=== PATIENT | female | born 1980 | race African-American/Black ===

== ENCOUNTER 2016-08-17 13:52 | Emergency (ER) | payer BC ==
[~2016-08-17] VITALS: Ht 167.6 cm; Wt 71.7 kg
--- NOTE | 2016-08-17 14:08 | NUR ---
PT AMBULATORY TO ER BED 11 C/O EPIGASTRIC PAIN W/ N/V X 2 WEEKS. TODAY PT STARTED HAVING HEADACHE THIS MORNING. GOWNED AND PLACED ON MONITOR. VSS AWAITING MD BARTON.
--- NOTE | 2016-08-17 14:17 | NUR ---
DR WILSON AT BEDSIDE FOR EVAL.
[2016-08-17] MEDS ORDERED: IBUPROFEN 600 MG TABLET PO ONE ×2 (14:21→14:30)
[2016-08-17] MEDS ORDERED: ONDANSETRON 4 MG TAB.RAPDIS ONE (14:21)
--- NOTE | 2016-08-17 14:22 | NUR ---
CHEF DE PARTIE AT BEDSIDE FOR BLOO DRAW.
[2016-08-17 14:28] LABS: BASOPHILS # (AUTO) 0.1 /CMM (0.0-0.2); BASOPHILS % (AUTO) 0.9 % (0.0-2.0); EOSINOPHILS # (AUTO) 0.2 /CMM (0.0-0.7); EOSINOPHILS % (AUTO) 2.2 % (0.0-6.0); HEMATOCRIT 32 % (33-45); HEMOGLOBIN 9.8 g/dL (11.5-14.8); LYMPHOCYTES # (AUTO) 1.8 /CMM (0.8-4.8); LYMPHOCYTES % (AUTO) 23.7 % (20.0-44.0); MEAN CORPUSCULAR HEMOGLOBIN 20 PG (26.0-33.0); MEAN CORPUSCULAR HGB CONC 31 g/dl (31.0-36.0); MEAN CORPUSCULAR VOLUME 66 fL (82-100); MONOCYTES # (AUTO) 0.6 /CMM (0.1-1.30); MONOCYTES % (AUTO) 7.7 % (2.0-12.0); NEUTROPHILS # (AUTO) 4.9 /CMM (1.8-8.9); NEUTROPHILS % (AUTO) 65.5 % (43.0-81.0); PLATELET COUNT (AUTO) 387 /CMM (150-450); RDW COEFFICIENT OF VARIATION 16.1 (11.5-15.0); RED BLOOD CELL COUNT(AUTO) 4.78 MIL/uL (4.0-5.2); WHITE BLOOD COUNT (AUTO) 7.6 K/uL (4.3-11.0)
[2016-08-17] MEDS ORDERED: ONDANSETRON 4 MG TAB.RAPDIS SL ONE (14:30)
[2016-08-17 14:34] LABS: APPEARANCE,URINE Clear (CLEAR); BLOOD, URINE Trace-intact Ery/uL (NEGATIVE); COLOR,URINE Yellow (YELLOW); KETONES,URINE 40 (NEGATIVE); LEUKOCYTE ESTERASE ,URINE Negative (NEGATIVE); NITRITE, URINE Negative (NEGATIVE); PROTEIN,URINE Negative (NEGATIVE); UGLUCOSE Negative (NEGATIVE); UROBILINOGEN,URINE 0.2 EU/dL (0.2)
[2016-08-17 14:37] LABS: BILIRUBIN,URINE SMALL (NEGATIVE)
[2016-08-17 14:39] LABS: PREGNANCY TEST URINE QUAL NEGATIVE (NEGATIVE)
[2016-08-17 14:43] LABS: ALBUMIN 3.5 g/dL (3.4-5.0); BILIRUBIN,DIRECT 0.1 mg/dL (0.0-0.2); BILIRUBIN,TOTAL 0.3 mg/dL (0.2-1.0); CALCIUM, SERUM 8.8 mg/dL (8.5-10.1); CREATININE 0.9 mg/dL (0.6-1.3); POTASSIUM 3.4 mmol/L (3.5-5.1); TOTAL PROTEIN, SERUM 7.5 g/dL (6.4-8.2)
[2016-08-17 15:05] LABS: ADD URINE CULTURE NO; BACTERIA,URINE Few /HPF (None Seen); RBC,URINE 0-2 /HPF (0-2); SQUAMOUS EPITHELIAL CELL,UR Few /HPF (None Seen)
[2016-08-17 15:23] LABS: EOSINOPHILS % (MANUAL) 2 % (0-4); LYMPHOCYTES % (MANUAL) 34 % (16-48); MONOCYTES % (MANUAL) 3 % (0-11.0); NEUTROPHILS % (MANUAL) 61 (42-76)
[2016-08-17 15:30] LABS: OVALOCYTES 1+; PLATELET ESTIMATE ADEQU; STOMATOCYTES 1+; TEAR DROP CELLS 1+
[2016-08-17 15:31] LABS: SMUDGE CELLS FEW
--- NOTE | 2016-08-17 16:03 | NUR ---
CALL FROM EMILY LOZANO, CORRECTED REPORT ON NRBC IS ACTUALLY ZERO INSTEAD OF 4, DR WILSON AWARE
--- NOTE | 2016-08-17 17:31 | NUR ---
PT LEFT W/OUT PRESCRIPTION AND ACI. CLEARED FOR D/C BY DR WILSON.
[2016-08-17 17:35] VITALS: BP 121/77
== END 2016-08-17 17:35 | disposition home or self-care (01) ==
LOC: ER 13:55
DX: R10.9 Unspecified abdominal pain (principal); R11.2 Nausea with vomiting, unspecified; R51 Headache
CPT/HCPCS: 36415; 80048-TC; 80076-TC; 81000-TC; 83690-TC; 84703-TC; 85025-TC; A4606; Q0162; Z7610